=== PATIENT | male | born 1955 ===

== ENCOUNTER 2018-03-26 15:30 | Emergency (ER) | payer MEDICAID ==
[2018-03-26 15:30] VITALS: BP_SYST 109
[2018-03-26] MEDS ORDERED: GASTROGRAFIN 120 ML ONE (16:04)
[2018-03-26 17:20] VITALS: BP_SYST 112
== END 2018-03-26 17:20 | disposition home or self-care (01) ==
LOC: SED 15:30
DX: Z43.1 Encounter for attention to gastrostomy (principal); R03.0 Elevated blood-pressure reading, without diagnosis of hypertension
CPT/HCPCS: 43760; 74240; 99284; Q9963